=== PATIENT | female | born 1990 ===

== ENCOUNTER 2022-11-02 00:59 | Emergency (ER) | payer OTHER, MEDICAID, SELFPAY ==
[2022-11-02 01:05] VITALS: BP 130/79; PULSE 93; RESP 18; TEMP 36.1; O2SAT 97; BMI 29.9
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
--- NOTE | 2022-11-02 01:18 | PC.NURSE ---
Patient is not answering questions, moving all extremities appropriately, and will follow commands. Triage unable to complete due to lack of participation from patient.
[2022-11-02 01:30] LABS: Add Manual Diff / Slide Review NO; Basophils Absolute Auto 0 /uL (0-100); Basophils Percent Auto 0.4 % (0-2); Eosinophils Absolute Auto 0 /uL (0-450); Eosinophils Percent Auto 0.4 % (2-4); Hematocrit 40.1 % (36-46); Hemoglobin 13.7 g/dL (12.0-16.0); Lymphocytes Absolute Auto 2100 /uL (1100-4500); Lymphocytes Percent Auto 16.4 % (25-40); Mean Corpuscular HGB Conc 34.2 % (30-36); Mean Corpuscular Hemoglobin 32.4 PG (26-34); Mean Corpuscular Volume 94.8 fL (80-100); Monocytes Absolute Auto 900 /uL (0-900); Monocytes Percent Auto 6.9 % (3-14); Neutrophils Absolute Auto 9600 /uL (1500-7000); Neutrophils Percent Auto 75.9 % (50-75); Platelet Count 317 X10^3/uL (150-400); Red Blood Cell Count 4.22 X10^6/uL (4.0-5.2); Red Cell Distribution Width 13.6 % (11.6-14.8); White Blood Cell Count 12.6 X10^3/uL (4.5-11.0)
--- NOTE | 2022-11-02 01:31 | PC.NURSE ---
Unable to complete CT scan. Pt unable to hold still. Able to complete CT head. Pt brought back to room 13.
[2022-11-02 01:39] LABS: Pregnancy Test Serum,Qual Negative (Negative)
[2022-11-02 01:41] LABS: Acetaminophen < 10 ug/mL (10-30); Alanine Aminotransferase 21 IU/L (<35); Albumin 4.5 g/dL (3.5-5.0); Albumin Globulin Ratio 1.4 (1.0-2.8); Alkaline Phosphatase 51 U/L (38-126); Aspartate Aminotransferase 27 IU/L (14-36); BUN Creatinine Ratio 16.9 (6-22); Bilirubin Total 0.4 mg/dL (0.2-1.3); Blood Urea Nitrogen 11 mg/dL (7-17); Calcium 8.4 mg/dL (8.4-10.2); Carbon Dioxide 20 mmol/L (22-32); Chloride 108 mmol/L (98-107); Estimated Glomerular Filt Rate > 60 mL/min (>60); Ethanol (ETOH) 171 mg/dL; Globulin 3.2 g/dL (1.7-4.1); Glucose 99 mg/dL (70-100); HEMOLYSIS 41 (0-50); Potassium 3.9 mmol/L (3.4-5.1); Salicylate < 1.0 mg/dL (<20); Sodium 142 mmol/L (137-145); Total Protein 7.7 g/dL (6.3-8.2)
--- NOTE | 2022-11-02 01:41 | PC.NURSE ---
Addendum entered by Magalis Altman R.N. 11/02/22 04:20: Corrected phone number for Yelena Florence [phone] Original Note: Patient's mother Yelena Florence [phone] called to provide history as patient's emergency contact. Per patient's mother, patient has hx of ETOH, and no known allergies. Ms. Florence lives in [place] and is unable to come to hospital.
[2022-11-02 02:13] LABS: TSH w/ Reflex to FT4 0.52 uIU/mL (0.47-4.68)
[2022-11-02 06:45] VITALS: BP 120/67; PULSE 92; RESP 16; O2SAT 97
--- NOTE | 2022-11-02 07:35 | PC.NURSE ---
Pt wanting to leave, RN asked pt if she has any thoughts of wanting to hurt herself or anyone else. Pt states No. Dr. Ramon at bedside. IV removed by RN.
== END 2022-11-02 07:40 | disposition home or self-care (01) ==
PROVIDERS: Emergency Provider Emergency Medicine; PCP Physician Assistant
DX: F10.129 Alcohol abuse with intoxication, unspecified (principal); Y90.6 Blood alcohol level of 120-199 mg/100 ml
CPT/HCPCS: 70450; 71045; 80053; 80320; 80329; 84443; 84703; 85025; 99281; 99284; G0480